=== PATIENT | male | born 1980 | race Caucasian/White ===

== ENCOUNTER 2022-05-04 06:32 | Emergency (ER) | payer OTHER, SELFPAY ==
[2022-05-04 06:40] VITALS: BP 133/85; PULSE 80; RESP 18; TEMP 36.6; O2SAT 100
--- NOTE | 2022-05-04 06:44 | ED_ITS ---
HPI - General Adult General Chief complaint: Upper Respiratory Symptoms Stated complaint: possible strep, has a cold for over a month Time Seen by Provider: 05/04/22 06:39 History of Present Illness HPI narrative: 41-year-old male nonsmoker with noncontributory medical history presents with a chief complaint of a few weeks of various upper respiratory symptoms including nasal congestion, sneezing, runny nose, sore throat and cough. A few days ago he started having significant worsening of sore throat and pain on swallowing. He presented to a walk-in clinic and had negative swabs for flu and COVID. He was given steroids and it seemed to help some. He denies any fever or chills. He is had no significant shortness of breath, nausea, vomiting or diarrhea. He denies any exposure to other obviously ill persons. He is concerned that perhaps he has strep throat now Related Data Home Medications Medication Instructions Recorded Confirmed ibuprofen 400 mg tablet 400 mg PO ##0 11/11/16 Allergies Allergy/AdvReac Type Severity Reaction Status Date / Time No Known Allergies Allergy Uncoded 06/27/17 12:47 Review of Systems Review of Systems Narrative: GENERAL: See HPI HEENT: See HPI RESPIRATORY: See HPI CARDIOVASCULAR: Denies chest pain, palpitations, orthopnea, edema, GASTROINTESTINAL: Denies nausea, vomiting, abdominal pain, diarrhea, constipation, melena. : Denies dysuria, frequency, incontinence, hematuria, urinary retention. MUSCULOSKELETAL: denies weakness, joint pain, or bony pain SKIN: Denies rash, skin lesions, or other NEUROLOGIC: Denies weakness, headache, numbness, change in speech, confusion, seizures, incoordination. PSYCHIATRIC: No concerning psychosocial issues. 12 point review of systems is negative except for those stated above Patient History Social History Smoking Status: Never smoker Exam Narrative Exam Narrative: GEN: AOx3 and in mild distress EYES: Pupils are equal, round, and reactive to light and accommodation. Extraoccular muscles are intact bilaterally. There is no subconjunctival hemorrhage or exudate. ENT: Moist mucous membranes, clear postnasal drip, minimal erythema, no petechiae, significant tonsillar swelling, exudate. No lymphadenopathy CHEST: Lungs are clear to auscultation bilaterally and free of wheezes, rales, or rhonchi. Heart rate is regular rhythm, there are no murmurs, clicks, rubs, or gallops. There is no chest wall tenderness. ABD: Abdomen is soft and nontender. There is no guarding or rebound. Bowel sounds are normal in all 4 quadrants. There is no mass or organomegaly. EXT: Full painless ROM of all extremities with no loss of sensation or strength. SKIN: Warm, pink, and dry. No erythema or rash Initial Vital Signs Initial Vital Signs: Vital Signs Temperature 97.9 F 05/04/22 06:40 Pulse Rate 80 05/04/22 06:40 Respiratory Rate 18 05/04/22 06:40 Blood Pressure 133/85 05/04/22 06:40 Pulse Oximetry 100 05/04/22 06:40 Oxygen Delivery Method 05/04/22 06:40 Course Orders Ordered: ED Orders 05/04/22 06:56 Throat Culture Stat Vital Signs Vital signs: Vital Signs - 8 hr 05/04/22 06:40 Temperature 97.9 F Pulse Rate 80 Respiratory Rate 18 Blood Pressure 133/85 Pulse Oximetry 100 Oxygen Delivery Method Room Air Medical Decision Making [facility] Narrative Medical decision making narrative: [41-year-old male nonsmoker with upper respiratory symptoms for a few weeks and now, worsening sore throat] Multiple etiologies for patient's symptoms considered including, but not limited to: [Viral upper respiratory infection, strep versus other] Prior Charts reviewed: No prior notes in EMR Labs reviewed and interpreted by myself: rapid strep negative, throat culture pending Patient's symptoms improved over duration of stay with above-stated therapies. Findings and discharge diagnosis discussed with patient/family followed by verbalization of understanding Return precautions discussed with patient/family whom verbalize understanding of diagnosis and plan Discharge Plan Departure Patient Disposition: Home Clinical Impression: Pharyngitis Instructions: Sore Throat Activity Restrictions/Additional Instructions: *You have been diagnosed with [various symptoms due to viral upper respiratory infection] *What to do: *Please consider the use of [id number] antihistamines such as cetirizine syrup which can dry the secretions that are causing many of these symptoms. As we discussed, a tsp of honey is a great option to help with cough if needed. Fever: *Fever is temperature over 101F, it is a common feature of most viral and bacterial infections *Fever tends to come back once the Tylenol (acetaminophen) or Motrin (ibuprofen) wears off as these medications do not treat the underlying cause, just the fever itself *Treat the patient, not the number. If your child is running around and playing you don?t have to treat the fever, however, if they seem grumpy or uncomfortable it is reasonable to treat fever * your history and physical exam are very reassuring and there is no indication that the symptoms are due to a bacterial infection, therefore there is no indication for antibiotics. *Please follow up with your primary care provider in 2-3 days, call for an appointment. Let them know you were seen in the Emergency Department and that we ask that you be seen in follow up. We will electronically transmit a record of today's note if your PCP is in our system *If you do not have a primary care provider please contact the [facility] Resource line at [phone]. They will ask some questions about your medical history and help get you set up with a doctor in the community. *Return to Emergency Department if you should have any new, worsening or conc erning symptoms Prescriptions: No Action ibuprofen 400 MG tablet 400 mg PO Qty: 0 Referrals: ProviderAbdoul [Primary Care Provider] - Stand Alone Forms: Patient Portal/API
== END 2022-05-04 07:08 | disposition home or self-care (01) ==
PROVIDERS: Emergency Provider Emergency Medicine
DX: J02.9 Acute pharyngitis, unspecified (principal)
CPT/HCPCS: 87070; 87880; 99282